=== PATIENT | female | born 1945 | race Caucasian/White ===

== ENCOUNTER 2021-05-09 17:36 | Emergency (ER) | payer OTHER ==
[~2021-05-09] VITALS: Ht 162.6 cm; Wt 55.3 kg
[2021-05-09] MEDS ORDERED: METFORMIN HCL500 M4 PO (18:59)
[2021-05-09] MEDS ORDERED: LORAZEPAM1 MG PO (18:59)
[2021-05-09] MEDS ORDERED: MIRTAZAPINE30 MG PO (19:00)
[2021-05-09] MEDS ORDERED: LEVOTHYROXINE50 MCG PO (19:00)
[2021-05-09] MEDS ORDERED: ST. JOSEPH ASPI81 M2 PO (19:00)
[2021-05-09] MEDS ORDERED: GLIMEPIRIDE2 M1 PO (19:00)
[2021-05-09] MEDS ORDERED: RISPERIDONE0.5 MG PO (19:00)
[2021-05-09] MEDS ORDERED: SIMVASTATIN20 MG PO (19:01)
[2021-05-09] MEDS ORDERED: DONEPEZIL HCL10 MG PO (19:01)
== END 2021-05-10 00:34 | disposition home or self-care (01) ==
LOC: ER 17:36
DX: R53.81 Other malaise (principal); Z20.822 Contact with and (suspected) exposure to COVID-19; R50.9 Fever, unspecified

== ENCOUNTER 2021-08-06 13:07 | Emergency (ER) | payer OTHER ==
[~2021-08-06] VITALS: Ht 162.6 cm; Wt 54.4 kg
[~2021-08-06 13:07] MED LIST: DONEPEZIL HCL10 MG PO; GLIMEPIRIDE2 M1 PO; LEVOTHYROXINE50 MCG PO; LORAZEPAM1 MG PO; METFORMIN HCL500 M4 PO; MIRTAZAPINE30 MG PO; RISPERIDONE0.5 MG PO; SIMVASTATIN20 MG PO; ST. JOSEPH ASPI81 M2 PO
== END 2021-08-06 17:54 | disposition home or self-care (01) ==
LOC: ER 13:07
DX: S09.90XA Unspecified injury of head, initial encounter (principal); S69.92XA Unspecified injury of left wrist, hand and finger(s), initial encounter; X58.XXXA Exposure to other specified factors, initial encounter; Y93.9 Activity, unspecified; Y92.9 Unspecified place or not applicable; Y99.9 Unspecified external cause status